=== PATIENT | female | born 1965 | race Two or more races ===

== ENCOUNTER 2019-08-19 11:52 | Emergency (ER) | payer SELFPAY ==
[~2019-08-19] VITALS: Ht 157.5 cm; Wt 65.4 kg
[2019-08-19 11:53] VITALS: BP 120/50
--- NOTE | 2019-08-19 12:02 | NUR ---
THIS IS A 53 YO FEMALE COMING IN FOR SUTURE REMOVAL ON LEFT HAD. PT WAS HERE 7 DAYS AGO WHEN SUTURES WERE PLACED.
== END 2019-08-19 12:35 | disposition home or self-care (01) ==
LOC: ED 12:33
DX: S61.412D Laceration without foreign body of left hand, subsequent encounter (principal); X58.XXXD Exposure to other specified factors, subsequent encounter
CPT/HCPCS: 99281